=== PATIENT | female | born 1965 | race Two or more races ===

== ENCOUNTER 2021-05-21 14:26 | Inpatient (IN) | payer BC, OTHER ==
[~2021-05-21] VITALS: Ht 160 cm; Wt 85.5 kg
[2021-05-21] MEDS: BUDESONIDE (INHALATION) 180 MCG IH IN SCH ×2 (06:10→19:00)
[2021-05-21] MEDS ORDERED: cefTRIAXone 1GM/50ML D5W 50 ML IV ONE (15:15)
[2021-05-21] MEDS ORDERED: AZITHROMYCIN 500MG/ 250ML 250 ML IV ONE (15:15)
[2021-05-21] MEDS ORDERED: DexAMETHasone SOD PHOS 10MG/1ML VIAL INJ IV ONE (15:15)
[2021-05-21] MEDS ORDERED: ZINC SULFATE 220mg CAP or TAB PO ONE (15:45)
[2021-05-21] MEDS ORDERED: ASCORBIC ACID 500 MG TAB PO ONE (15:45)
[2021-05-21 15:49] LABS: Basophils # (auto) 0 10 ^3/uL (0-0.2); Basophils % (auto) 0.4 % (0.0-2.0); Eosinophils # (auto) 0 10 ^3/uL (0-0.8); Eosinophils % (auto) 0.4 % (0.0-7.0); Hematocrit 39.2 % (36.0-46.0); Hemoglobin 13.4 g/dL (12.2-16.2); Lymphocytes # (auto) 1.3 10 ^3/uL (0.4-5.4); Lymphocytes % (auto) 23.8 % (10.0-50.0); Mean Corpuscular Hemoglobin 28.6 pg (28.0-32.0); Mean Corpuscular Hgb Conc. 34.1 g/dL (32.0-36.0); Mean Corpuscular Volume 83.8 fL (80.0-100.0); Monocytes # (auto) 0.6 10 ^3/uL (0-1.3); Monocytes % (auto) 11.1 % (0.0-12.0); Neutrophils # (auto) 3.4 10 ^3/uL (1.6-8.6); Neutrophils % (auto) 64.3 % (37.0-80.0); Nucleated Red Blood Cells % 0.1 %; Red Blood Cells 4.67 10^6/uL (4.0-5.20); Red Cell Distribution Width 15.8 % (11.8-14.3); White Blood Cell 5.3 10^3/uL (4.4-10.8)
[2021-05-21 16:08] LABS: Albumin 2.6 g/dL (3.4-5.0); Calcium 9.3 mg/dL (8.5-10.1)
[2021-05-21 16:13] LABS: BUN/Creatinine Ratio 15.7; Bilirubin, Total 0.5 mg/dL (0.2-1.0); Total Protein 7.6 g/dL (6.4-8.2)
[2021-05-21] MEDS ORDERED: REMDESIVIR PER PHARMACY 0 ML IV SCH (17:45)
[2021-05-21] MEDS ORDERED: NITROGLYCERIN 0.4 MG SL TAB SL PRN (17:45)
[2021-05-21] MEDS ORDERED: MORPHINE SULFATE INJECTION 2 MG/ML SYRG IV PRN (17:45)
[2021-05-21] MEDS ORDERED: ACETAMINOPHEN 500 MG TAB PO PRN (17:45)
[2021-05-21] MEDS ORDERED: TOCILIZUMAB 400 MG in SODIUM CHL 0.9% 80 ML IV ONE (19:00)
[2021-05-21] MEDS: ALBUTEROL SULF HFA 90MCG INH 200DOSE IN PRN (19:00)
[2021-05-21] MEDS ORDERED: REMDESIVIR 200 MG in NS 210ml LOADING DOSE ADULT IV ONE (20:30)
[2021-05-21] MEDS: CHOLECALCIFEROL (VITD3) 2,000 UNIT CAP/TAB PO SCH (21:36)
[2021-05-21] MEDS: IVERMECTIN 3 MG TAB PO SCH (21:38)
[2021-05-22] MEDS: HYDROcodone-ACET 5/325MG TAB PO PRN ×3 (01:35→22:46)
[2021-05-22] MEDS: ENOXAPARIN SOD 40 MG/0.4 ML SYRINGE SC SCH ×3 (02:42→22:27)
[2021-05-22 02:49] LABS: Urine Bacteria FEW /hpf (None Seen); Urine Blood Negative /uL (Negative); Urine Mucus FEW (None Seen); Urine Specific Gravity 1.016 (1.001-1.035); Urine WBC 213 /hpf (0 - 5)
[2021-05-22 03:48] VITALS: BP 133/93
[2021-05-22 05:31] LABS: Basophils # (auto) 0 10 ^3/uL (0-0.2); Basophils % (auto) 0.1 % (0.0-2.0); Eosinophils # (auto) 0 10 ^3/uL (0-0.8); Hematocrit 35.4 % (36.0-46.0); Lymphocytes # (auto) 0.7 10 ^3/uL (0.4-5.4); Lymphocytes % (auto) 25.5 % (10.0-50.0); Mean Corpuscular Hemoglobin 28.2 pg (28.0-32.0); Monocytes # (auto) 0.2 10 ^3/uL (0-1.3); Monocytes % (auto) 8.6 % (0.0-12.0); Neutrophils # (auto) 1.9 10 ^3/uL (1.6-8.6); Neutrophils % (auto) 65.8 % (37.0-80.0); Nucleated Red Blood Cells % 0.1 %; Red Blood Cells 4.26 10^6/uL (4.0-5.20); Red Cell Distribution Width 15.8 % (11.8-14.3); White Blood Cell 2.9 10^3/uL (4.4-10.8)
[2021-05-22] MEDS: BUDESONIDE (INHALATION) 180 MCG IH IN SCH ×2 (06:07→22:26)
[2021-05-22 06:18] LABS: Albumin 2.3 g/dL (3.4-5.0); Calcium 9.3 mg/dL (8.5-10.1); Potassium 4.6 mmol/L (3.5-5.1)
[2021-05-22 06:23] LABS: Bilirubin, Total 0.3 mg/dL (0.2-1.0); Total Protein 7.3 g/dL (6.4-8.2)
[2021-05-22] MEDS: IVERMECTIN 3 MG TAB PO SCH (11:00)
[2021-05-22] MEDS: ASCORBIC ACID 1,000 MG TAB PO SCH (11:00)
[2021-05-22] MEDS: DexAMETHasone SOD PHOS 10MG/1ML VIAL INJ IV SCH (11:00)
[2021-05-22] MEDS: CHOLECALCIFEROL (VITD3) 2,000 UNIT CAP/TAB PO SCH (11:00)
[2021-05-22] MEDS: ZINC SULFATE 220mg CAP or TAB PO SCH (11:00)
[2021-05-22] MEDS: cefTRIAXone 1GM/50ML D5W 50 ML IV SCH (11:00)
[2021-05-22] MEDS: AZITHROMYCIN 500MG/ 250ML 250 ML IV SCH (12:41)
[2021-05-22] MEDS: REMDESIVIR 100mg 100 MG in SODIUM CHL 0.9% 230 ML IV SCH (16:28)
[2021-05-22] MEDS: FAMOTIDINE 20 MG TAB PO SCH (22:26)
[2021-05-23 04:19] LABS: Basophils # (auto) 0 10 ^3/uL (0-0.2); Eosinophils # (auto) 0 10 ^3/uL (0-0.8); Monocytes # (auto) 0.8 10 ^3/uL (0-1.3)
[2021-05-23 04:24] LABS: Albumin 2.3 g/dL (3.4-5.0); Calcium 9.3 mg/dL (8.5-10.1); Magnesium 2.3 mg/dL (1.6-2.6); Potassium 4.3 mmol/L (3.5-5.1)
[2021-05-23 04:27] LABS: Lactic Acid w/Reflex 2.2 mmol/L (0.4-2.0)
[2021-05-23 04:28] LABS: Basophils % (auto) 0.2 % (0.0-2.0); Hematocrit 35.8 % (36.0-46.0); Hemoglobin 12.4 g/dL (12.2-16.2); Lymphocytes # (auto) 1.1 10 ^3/uL (0.4-5.4); Lymphocytes % (auto) 13.8 % (10.0-50.0); Mean Corpuscular Hemoglobin 29.1 pg (28.0-32.0); Mean Corpuscular Hgb Conc. 34.7 g/dL (32.0-36.0); Mean Corpuscular Volume 83.9 fL (80.0-100.0); Monocytes % (auto) 9.9 % (0.0-12.0); Neutrophils # (auto) 6.1 10 ^3/uL (1.6-8.6); Neutrophils % (auto) 76.1 % (37.0-80.0); Nucleated Red Blood Cells % 0.1 %; Red Blood Cells 4.27 10^6/uL (4.0-5.20); Red Cell Distribution Width 15.8 % (11.8-14.3); White Blood Cell 8.1 10^3/uL (4.4-10.8)
[2021-05-23 04:33] LABS: BUN/Creatinine Ratio 29.4; Bilirubin, Total 0.3 mg/dL (0.2-1.0); CRP High Sensitivity 8.25 mg/dL (< 0.3); INR 1.06 (0.9-1.15); Total Protein 7.1 g/dL (6.4-8.2)
[2021-05-23] MEDS: BUDESONIDE (INHALATION) 180 MCG IH IN SCH ×2 (07:01→18:40)
[2021-05-23] MEDS: ALBUTEROL SULF HFA 90MCG INH 200DOSE IN PRN ×2 (07:01→19:00)
[2021-05-23] MEDS: cefTRIAXone 1GM/50ML D5W 50 ML IV SCH (10:46)
[2021-05-23] MEDS: DexAMETHasone SOD PHOS 10MG/1ML VIAL INJ IV SCH (10:46)
[2021-05-23] MEDS: AZITHROMYCIN 500MG/ 250ML 250 ML IV SCH (10:47)
[2021-05-23] MEDS: ZINC SULFATE 220mg CAP or TAB PO SCH (10:47)
[2021-05-23] MEDS: IVERMECTIN 3 MG TAB PO SCH (10:48)
[2021-05-23] MEDS: FAMOTIDINE 20 MG TAB PO SCH ×2 (10:48→21:34)
[2021-05-23] MEDS: ENOXAPARIN SOD 40 MG/0.4 ML SYRINGE SC SCH ×2 (10:49→21:34)
[2021-05-23] MEDS: CHOLECALCIFEROL (VITD3) 2,000 UNIT CAP/TAB PO SCH (10:49)
[2021-05-23] MEDS: ASCORBIC ACID 1,000 MG TAB PO SCH (10:49)
[2021-05-23] MEDS ORDERED: FUROSEMIDE 20 MG/2 ML VIAL IV ONE (12:30)
[2021-05-23] MEDS: REMDESIVIR 100mg 100 MG in SODIUM CHL 0.9% 230 ML IV SCH (14:51)
[2021-05-23] MEDS: HYDROcodone-ACET 5/325MG TAB PO PRN (21:23)
[2021-05-23 22:35] VITALS: BP 126/86
[2021-05-23] MEDS ORDERED: MESA400C5 PO (23:13)
[2021-05-23] MEDS ORDERED: PANT40TA2 PO (23:14)
[2021-05-23] MEDS ORDERED: MELO1TAB73 PO (23:14)
[2021-05-24 05:00] VITALS: BP 118/73
[2021-05-24] MEDS: ALBUTEROL SULF HFA 90MCG INH 200DOSE IN PRN ×2 (07:21→22:43)
[2021-05-24] MEDS: BUDESONIDE (INHALATION) 180 MCG IH IN SCH ×2 (07:22→22:43)
[2021-05-24 08:08] LABS: Potassium 4.3 mmol/L (3.5-5.1)
[2021-05-24 09:00] VITALS: BP 135/74
[2021-05-24] MEDS: ASCORBIC ACID 1,000 MG TAB PO SCH (10:01)
[2021-05-24] MEDS: cefTRIAXone 1GM/50ML D5W 50 ML IV SCH (10:01)
[2021-05-24] MEDS: FAMOTIDINE 20 MG TAB PO SCH ×2 (10:01→21:26)
[2021-05-24] MEDS: ZINC SULFATE 220mg CAP or TAB PO SCH (10:01)
[2021-05-24] MEDS: DexAMETHasone SOD PHOS 10MG/1ML VIAL INJ IV SCH (10:01)
[2021-05-24] MEDS: CHOLECALCIFEROL (VITD3) 2,000 UNIT CAP/TAB PO SCH (10:01)
[2021-05-24] MEDS: FUROSEMIDE 20 MG/2 ML VIAL IV SCH (10:02)
[2021-05-24] MEDS: ENOXAPARIN SOD 40 MG/0.4 ML SYRINGE SC SCH ×2 (10:02→21:26)
[2021-05-24] MEDS: AZITHROMYCIN 500MG/ 250ML 250 ML IV SCH (10:05)
[2021-05-24] MEDS: IVERMECTIN 3 MG TAB PO SCH (11:41)
[2021-05-24 13:00] VITALS: BP 127/70
[2021-05-24] MEDS ORDERED: TOCILIZUMAB 400 MG in SODIUM CHL 0.9% 80 ML IV ONE (13:00)
[2021-05-24] MEDS: REMDESIVIR 100mg 100 MG in SODIUM CHL 0.9% 230 ML IV SCH (15:33)
[2021-05-24 17:00] VITALS: BP 121/77
[2021-05-24] MEDS: HYDROcodone-ACET 5/325MG TAB PO PRN (21:26)
[2021-05-24 22:00] VITALS: BP 129/80
[2021-05-25 05:00] VITALS: BP 143/84
[2021-05-25 06:42] LABS: Potassium 4.1 mmol/L (3.5-5.1)
[2021-05-25 06:49] LABS: Albumin 2.3 g/dL (3.4-5.0); BUN/Creatinine Ratio 38.3; Bilirubin, Total 0.3 mg/dL (0.2-1.0); Calcium 8.8 mg/dL (8.5-10.1); Magnesium 2.2 mg/dL (1.6-2.6); Total Protein 6.7 g/dL (6.4-8.2)
[2021-05-25 06:56] LABS: CRP High Sensitivity 2.37 mg/dL (< 0.3)
[2021-05-25] MEDS: ALBUTEROL SULF HFA 90MCG INH 200DOSE IN PRN ×2 (08:17→22:49)
[2021-05-25] MEDS: BUDESONIDE (INHALATION) 180 MCG IH IN SCH ×2 (08:17→22:49)
[2021-05-25 08:50] VITALS: BP 123/78
[2021-05-25] MEDS: FUROSEMIDE 20 MG/2 ML VIAL IV SCH (10:00)
[2021-05-25] MEDS: AZITHROMYCIN 500MG/ 250ML 250 ML IV SCH (10:00)
[2021-05-25] MEDS: DexAMETHasone SOD PHOS 10MG/1ML VIAL INJ IV SCH (10:10)
[2021-05-25] MEDS: cefTRIAXone 1GM/50ML D5W 50 ML IV SCH (10:10)
[2021-05-25] MEDS: ENOXAPARIN SOD 40 MG/0.4 ML SYRINGE SC SCH ×2 (10:11→21:08)
[2021-05-25] MEDS: ZINC SULFATE 220mg CAP or TAB PO SCH (10:11)
[2021-05-25] MEDS: ASCORBIC ACID 1,000 MG TAB PO SCH (10:11)
[2021-05-25] MEDS: CHOLECALCIFEROL (VITD3) 2,000 UNIT CAP/TAB PO SCH (10:12)
[2021-05-25] MEDS: IVERMECTIN 3 MG TAB PO SCH (10:12)
[2021-05-25] MEDS: FAMOTIDINE 20 MG TAB PO SCH ×2 (10:12→21:08)
[2021-05-25] MEDS: HYDROcodone-ACET 5/325MG TAB PO PRN ×2 (11:52→21:17)
[2021-05-25 13:00] VITALS: BP 124/77
[2021-05-25] MEDS: REMDESIVIR 100mg 100 MG in SODIUM CHL 0.9% 230 ML IV SCH (15:51)
[2021-05-25 17:00] VITALS: BP 118/77
[2021-05-25 22:06] VITALS: BP 137/85
[2021-05-26 05:25] VITALS: BP 123/69
[2021-05-26] MEDS: BUDESONIDE (INHALATION) 180 MCG IH IN SCH ×2 (06:50→23:11)
[2021-05-26] MEDS: ALBUTEROL SULF HFA 90MCG INH 200DOSE IN PRN ×2 (06:51→23:11)
[2021-05-26] MEDS: cefTRIAXone 1GM/50ML D5W 50 ML IV SCH (08:31)
[2021-05-26] MEDS: FAMOTIDINE 20 MG TAB PO SCH ×2 (08:32→21:07)
[2021-05-26] MEDS: DexAMETHasone SOD PHOS 10MG/1ML VIAL INJ IV SCH (08:32)
[2021-05-26] MEDS: ZINC SULFATE 220mg CAP or TAB PO SCH (08:32)
[2021-05-26] MEDS: IVERMECTIN 3 MG TAB PO SCH (08:33)
[2021-05-26] MEDS: ASCORBIC ACID 1,000 MG TAB PO SCH (08:33)
[2021-05-26] MEDS: ENOXAPARIN SOD 40 MG/0.4 ML SYRINGE SC SCH ×2 (08:34→21:07)
[2021-05-26] MEDS: CHOLECALCIFEROL (VITD3) 2,000 UNIT CAP/TAB PO SCH (08:34)
[2021-05-26 09:00] VITALS: BP 114/66
[2021-05-26] MEDS: FUROSEMIDE 20 MG/2 ML VIAL IV SCH (11:19)
[2021-05-26] MEDS: AZITHROMYCIN 500MG/ 250ML 250 ML IV SCH (12:47)
[2021-05-26] MEDS: HYDROcodone-ACET 5/325MG TAB PO PRN ×2 (12:48→21:07)
[2021-05-26 13:00] VITALS: BP 105/69
[2021-05-26 17:00] VITALS: BP 129/81
[2021-05-26 22:00] VITALS: BP 123/73
[2021-05-27 05:14] VITALS: BP 111/79
[2021-05-27] MEDS: BUDESONIDE (INHALATION) 180 MCG IH IN SCH (07:14)
[2021-05-27] MEDS: ALBUTEROL SULF HFA 90MCG INH 200DOSE IN PRN (07:14)
[2021-05-27 09:00] VITALS: BP 129/75
[2021-05-27] MEDS: DexAMETHasone SOD PHOS 10MG/1ML VIAL INJ IV SCH (09:47)
[2021-05-27] MEDS: cefTRIAXone 1GM/50ML D5W 50 ML IV SCH (09:47)
[2021-05-27] MEDS: ZINC SULFATE 220mg CAP or TAB PO SCH (09:48)
[2021-05-27] MEDS: FUROSEMIDE 20 MG/2 ML VIAL IV SCH (09:48)
[2021-05-27] MEDS: FAMOTIDINE 20 MG TAB PO SCH (09:49)
[2021-05-27] MEDS: IVERMECTIN 3 MG TAB PO SCH (09:49)
[2021-05-27] MEDS: ASCORBIC ACID 1,000 MG TAB PO SCH (09:50)
[2021-05-27] MEDS: CHOLECALCIFEROL (VITD3) 2,000 UNIT CAP/TAB PO SCH (09:50)
[2021-05-27] MEDS: ENOXAPARIN SOD 40 MG/0.4 ML SYRINGE SC SCH (09:50)
[2021-05-27 13:00] VITALS: BP 109/73
[2021-05-27 17:00] VITALS: BP 97/75
[2021-05-27 18:00] VITALS: BP 97/75
== END 2021-05-27 19:13 | disposition home or self-care (01) | DRG 871 ==
LOC: ER 14:34 → TELE 17:41 → TELE-EAST 05-23 20:20
PROVIDERS: ADMIT Nurse Practitioner Acute Care; ATTEND Internal Medicine
PROC: XW033E5 Introduction of Remdesivir Anti-infective into Peripheral Vein, Percutaneous Approach, New Technology Group 5 (ICD-10-PCS; principal; 2021-05-21)
PROC: XW033H5 Introduction of Tocilizumab into Peripheral Vein, Percutaneous Approach, New Technology Group 5 (ICD-10-PCS; 2021-05-21)
DX: A41.89 Other specified sepsis (principal); U07.1 COVID-19; J12.82 Pneumonia due to coronavirus disease 2019; J96.01 Acute respiratory failure with hypoxia; I21.4 Non-ST elevation (NSTEMI) myocardial infarction; K50.90 Crohn's disease, unspecified, without complications; D89.839 Cytokine release syndrome, grade unspecified; E66.9 Obesity, unspecified; M19.90 Unspecified osteoarthritis, unspecified site; G89.29 Other chronic pain; Z79.899 Other long term (current) drug therapy; Z68.33 Body mass index [BMI] 33.0-33.9, adult
CPT/HCPCS: 36415; 36600; 71045; 80053; 81001; 82306; 82728; 82805; 83605; 83615; 83735; 83880; 84132; 84484; 85025; 85379; 85610; 86141; 87426; 93005; 93306; 93970; 94640; 96365; 96367; 96375; 97163; 99291; G0378; J0696; J1100

== ENCOUNTER 2024-07-06 09:59 | Emergency (ER) | payer BC ==
[~2024-07-06] VITALS: Ht 160 cm; Wt 81.3 kg
[~2024-07-06 09:59] MED LIST: MELO7.5T7 PO; MESA400C5 PO; PANT40TA2 PO
[2024-07-06 11:53] LABS: Basophils # (auto) 0 10 ^3/uL (0-0.2); Basophils % (auto) 0.2 % (0.0-2.0); Eosinophils # (auto) 0 10 ^3/uL (0-0.8); Eosinophils % (auto) 0.1 % (0.0-7.0); Hematocrit 36.9 % (36.0-46.0); Hemoglobin 12.7 g/dL (12.2-16.2); Lymphocytes # (auto) 1.5 10 ^3/uL (0.4-5.4); Lymphocytes % (auto) 13.3 % (10.0-50.0); Mean Corpuscular Hemoglobin 31.8 pg (28.0-32.0); Mean Corpuscular Hgb Conc. 34.4 g/dL (32.0-36.0); Mean Corpuscular Volume 92.5 fL (80.0-100.0); Monocytes # (auto) 0.9 10 ^3/uL (0-1.3); Monocytes % (auto) 8.2 % (0.0-12.0); Neutrophils # (auto) 8.6 10 ^3/uL (1.6-8.6); Neutrophils % (auto) 78.2 % (37.0-80.0); Platelet Count (auto) 235 10^3/uL (140-450); Red Blood Cells 3.99 10^6/uL (4.0-5.20); Red Cell Distribution Width 13.3 % (11.8-14.3)
[2024-07-06 12:10] VITALS: BP 123/64; PULSE 101; RESP 16; TEMP 98.2; O2SAT 99
[2024-07-06 12:15] LABS: Lactic Acid w/Reflex 2.1 mmol/L (0.4-2.0)
[2024-07-06 12:16] LABS: Alanine Aminotransferase 15 U/L (7-40); Albumin 4.3 g/dL (3.2-4.8); Alkaline Phosphatase 73 U/L (46-116); Anion Gap 8 (5-15); Aspartate Aminotransferase 15 U/L (13-40); BUN/Creatinine Ratio 10.8 (10.0-20.0); Bilirubin, Total 0.8 mg/dL (0.2-1.0); Blood Urea Nitrogen 11 mg/dL (9-23); Carbon Dioxide 28 mmol/L (20-31); Chloride 102 mmol/L (98-107); Glucose 113 mg/dL (74-106); Potassium 3.4 mmol/L (3.5-5.1); Sodium 138 mmol/L (136-145)
[2024-07-06 12:25] LABS: CRP High Sensitivity 15.87 mg/dL (<1.0)
[2024-07-06 12:37] LABS: Erythrocyte Sedimentation Rate 51 mm/hr (0-20)
[2024-07-06] MEDS ORDERED: CEPH500C PO (12:46)
[2024-07-06] MEDS ORDERED: SODIUM CHLORIDE 0.9% 1,000 ML IV ONE (13:00)
== END 2024-07-06 13:11 | disposition home or self-care (01) ==
LOC: ER 09:59
DX: M79.661 Pain in right lower leg (principal); M19.90 Unspecified osteoarthritis, unspecified site; Z79.1 Long term (current) use of non-steroidal anti-inflammatories (NSAID); Z79.899 Other long term (current) drug therapy; Z86.718 Personal history of other venous thrombosis and embolism; Z96.651 Presence of right artificial knee joint; Z98.890 Other specified postprocedural states
CPT/HCPCS: 36415; 80053; 83605; 83880; 85025; 85652; 86141; 93970